=== PATIENT | female | born 1965 | race African-American/Black ===

== ENCOUNTER 2018-07-30 13:30 | Outpatient (CLI) | payer MEDICAID ==
[~2018-07-30] VITALS: Ht 160 cm; Wt 111.6 kg
[2018-07-30 14:00] VITALS: BP 128/82
[2018-07-31] MEDS ORDERED: SPIRONOLACTONE25 MG ORAL (14:36)
[2018-07-31] MEDS ORDERED: PROTONIX40 MG ORAL (14:36)
[2018-07-31] MEDS ORDERED: LOSARTAN POTASS50 MG ORAL (14:36)
[2018-07-31] MEDS ORDERED: ASPIRIN EC81 MG ORAL (14:36)
[2018-07-31] MEDS ORDERED: ATORVASTATIN CA10 MG ORAL (14:36)
[2018-07-31] MEDS ORDERED: FUROSEMIDE40 MG ORAL (14:36)
[2018-07-31] MEDS ORDERED: METFORMIN HCL500 M1 ORAL (14:36)
[2018-07-31] MEDS ORDERED: XANAX0.25 MG ORAL (14:36)
--- NOTE | 2018-07-31 15:42 | GI Initial Consult Note ---
History of Present Illness General Date patient seen: Jul 31, 2018 Time patient seen: 15:37 Referring physician: HMO Reason for Consultation: Abdominal pain Present Illness HPI This is a 52-year-old female patient presents today with to clinic with complaint of abdominal pain and symptomatic GERD. The patient denies any nausea or vomiting. Denies any rectal bleeding or melena. The patient states she had a endoscopy and colonoscopy performed back in August 2017 most noted with duodenitis and hemorrhoids. However, the colonoscopy was mainly inconclusive due to poor prep. H. pylori pathology was negative. The patient plans for gastric bypass in October. The patient has had no follow-up appointments since her endoscopic and colonoscopy last year. Denies any unintentional weight loss or changes in dietary habits. No signs of abuse or neglect. Patient is not fall risk. Home Meds Reported Medications Alprazolam* (XANAX*) 0.25 Mg Tablet, 0.25 MG ORAL PRN, #30 TAB 0 Refills 07/31/18 Aspirin Ec* (ASPIRIN EC*) 81 Mg Tablet.dr, 81 MG ORAL DAILY, TAB 07/31/18 Losartan Potassium* (LOSARTAN POTASSIUM*) 50 Mg Tablet, 50 MG ORAL DAILY, TAB 07/31/18 Furosemide* (LASIX*) 40 Mg Tablet, 40 MG ORAL DAILY, TAB 07/31/18 Metformin Hcl* (METFORMIN HCL*) 500 Mg Tablet, 500 MG ORAL TWICE A DAY, TAB 07/31/18 Atorvastatin Calcium* (LIPITOR*) 10 Mg Tablet, 10 MG ORAL BEDTIME, TAB 07/31/18 Pantoprazole* (PROTONIX*) 40 Mg Tablet.dr, 40 MG ORAL DAILY, TAB 07/31/18 Spironolactone* (ALDACTONE*) 25 Mg Tablet, 25 MG ORAL DAILY, TAB 07/31/18 Med list reviewed/reconciled: Yes Allergies: Coded Allergies: ACETAMINOPHEN (Verified Allergy, Mild, Rash, 07/31/18) HYDROCODONE (Verified Allergy, Mild, Rash, 07/31/18) CODEINE (Verified Allergy, Unknown, 07/31/18) MORPHINE (Verified Allergy, Unknown, 07/31/18) Patient History History Provided By: Patient, Medical Record PMH Narrative GERD CHF Hyperlipidemia COPD Diabetes mellitus Anxiety Past surgical history Unknown abdominal surgery Hysterectomy Pertinent Family History: none Social History: Denies: smoking, alcohol use, drug use, other Review of Systems All Other Systems: negative except mentioned in HPI Physical Exam Vital Signs Date Time Temp Pulse Resp B/P (MAP) Pulse Ox O2 Delivery O2 Flow Rate FiO2 07/30/18 14:00 98.1 88 128/82 91 Sp02 EP Interpretation: reviewed, normal General Appearance: well appearing, no apparent distress, alert Head: normocephalic EENT: PERRL/EOMI, normal ENT inspection Neck: supple Respiratory: normal breath sounds, no respiratory distress Cardiovascular: normal rate Gastrointestinal: normal inspection, non tender, soft, normal bowel sounds, non -distended Rectal: deferred Genitourinary: no CVA tenderness Musculoskeletal: normal inspection, back normal Neurologic: normal inspection, alert, oriented x3, responsive Psychiatric: normal inspection, judgement/insight normal, memory normal Skin: normal inspection, normal color, no rash, warm/dry, palpation normal, well hydrated Lymphatic: normal inspection, no adenopathy GI: Plan Problems: (1) Abdominal pain (2) GERD (gastroesophageal reflux disease) (3) COPD (chronic obstructive pulmonary disease) (4) Hyperlipidemia (5) Anxiety (6) CHF (congestive heart failure) (7) Diabetes mellitus (8) Colonoscopy planned Plan EGD/colonoscopy to be scheduled pending PA, will contact patient. - CLD & (Nulytely/Suprep/Movi-Prep) prep instructions given and acknowledged by patient. - NPO @ SC day prior procedure explained. Will follow with additional recs post procedure. Patient will need preoperative of endoscopy for gastric bypass and evaluate abdominal pain and will need a repeat colonoscopy due to poor prep. Seen with Dr. Diop. Thank you for this patient referral. The patient was seen and examined at bedside and all new and available data was reviewed in the patients chart. I agree with the above findings, impression and plan. (Patient seen earlier today. Signature stamp does not reflect patient encounter time.). - MD Naida June,[facility] PROC[employer] DESIGN CHEMICAL ENGINEER Jul 31, 2018 15:42
== END 2018-07-30 14:00 | disposition home or self-care (01) ==
LOC: PAN 13:30
DX: K21.9 Gastro-esophageal reflux disease without esophagitis (principal); J44.9 Chronic obstructive pulmonary disease, unspecified; E78.5 Hyperlipidemia, unspecified; F41.9 Anxiety disorder, unspecified; I50.9 Heart failure, unspecified; E11.9 Type 2 diabetes mellitus without complications; Z88.6 Allergy status to analgesic agent
CPT/HCPCS: 99202